=== PATIENT | female | born 1995 | race Caucasian/White ===

== ENCOUNTER 2019-07-11 12:07 | Emergency (ER) | payer OTHER ==
--- NOTE | 2019-07-11 12:29 | UC ---
Throat Pain/Nasal Abran HPI - HPI Summary HPI Summary: 23 yo female presents with sinus congestion. She tells me that she has a chronic runny nose, but over the last 2 days has had sinus congestion and her whole head feels "stuffy". She has tried goldenrod tea and netti pot with no relief. Denies fever, chills, earache, sore throat, cough, rash, n/v. - History of Current Complaint Stated Complaint: SINUS CONGESTION Time Seen by Provider: 07/11/19 12:29 Hx Obtained From: Patient Onset/Duration: Sudden Onset Severity: Mild Pain Intensity: 2 Pain Scale Used: 0-10 Numeric - Allergies/Home Medications Allergies/Adverse Reactions: Allergies Allergy/AdvReac Type Severity Reaction Status Date / Time amoxicillin Allergy Unknown Verified 07/11/19 12:36 Reaction Details environmental Allergy Congestion Uncoded 07/11/19 12:44 Home Medications: Home Medications Chlorphenir/Phenyleph/Aspirin [Farzaneh-[place] Plus Cold 2-7.8-325 mg] 1 tab PO ONCE 07/11/19 [History Confirmed 07/11/19] PMH/Surg Hx/FS Hx/Imm Hx - Additional Past Medical History Additional PMH: None - Surgical History Surgical History: None - Family History Known Family History: Positive: Non-Contributory - Social History Lives: With Family Alcohol Use: None Substance Use Type: Marijuana Smoking Status (MU): Never Smoked Tobacco Review of Systems All Other Systems Reviewed And Are Negative: No Constitutional: Positive: Negative Skin: Positive: Negative Eyes: Positive: Negative ENT: Positive: Nasal Discharge, Sinus Congestion Respiratory: Positive: Negative Cardiovascular: Positive: Negative Gastrointestinal: Positive: Negative Neurological: Positive: Negative Psychological: Positive: Negative Physical Exam - Summary Physical Exam Summary: GENERAL: NAD. WDWN. No pain distress. SKIN: No rashes, sores, lesions, or open wounds. HEENT: Head: AT/NC Eyes: EOM intact. Conjunctiva clear without inflammation or discharge. Ears: Hearing grossly normal. TMs intact, no bulging, erythema, or edema. Nose: Nasal mucosa pink and moist. No discharge. NTTP maxillary and frontal sinus. Throat: Posterior oropharynx without exudates, erythema, or tonsillar enlargement. Uvula midline. NECK: Supple. Nontender. No lymphadenopathy. CHEST: CTAB. No accessory muscle use. Breathing comfortably and in no distress. CV: RRR. Pulses intact. Cap refill <2seconds NEURO: Alert. PSYCH: Age appropriate behavior. Triage Information Reviewed: Yes Vital Signs: Vital Signs: Temp Pulse Resp BP Pulse Ox 99.3 F 59 14 98/63 100 07/11/19 12:37 07/11/19 12:37 07/11/19 12:37 07/11/19 12:37 07/11/19 12:37 Vital Signs Reviewed: Yes Throat Pain/Nasal Course/Dx - Course Course Of Treatment: Suspect viral sinusitis. Will rx for supportive care and have pt f/u with PCP if symptoms do not improve - Differential Dx/Diagnosis Provider Diagnosis: Viral sinusitis Discharge ED - Sign-Out/Discharge Documenting (check all that apply): Patient Departure All imaging exams completed and their final reports reviewed: No Studies - Discharge Plan Condition: Stable Disposition: HOME Prescriptions: Fluticasone NASAL SPRAY 50MCG* [Flonase NASAL SPRAY 50MCG*] 2 spray BOTH NARES DAILY #1 btl guaiFENesin ER TAB [Mucinex*] 600 mg PO BID #20 tab.er Loratadine [Claritin] 10 mg PO DAILY #14 tablet Patient Education Materials: Rhinosinusitis (ED) Forms: *Work Release Referrals: No Primary Care Phys,NOPCP [Primary Care Provider] - Additional Instructions: If you develop a fever, shortness of breath, chest pain, new or worsening symptoms - please call your PCP or go to the ED immediately. Your symptoms are likely from a viral infection. Viral infections do not respond to antibiotics and are limited to the treatment of symptoms. Viral infections typically run their course in 7-10 days. Drink plenty of fluids, especially if you are running any fever. Use salt water gargles several times a day. Take over the counter acetaminophen (Tylenol) or ibuprofen (Advil, Motrin) according to directions as needed for pain or fever. You may also use Chloraseptic spray or Cepacol lonzenges according to directions which contain a numbing medication and can provide some temporary relief from a sore throat. Return here or follow up with your primary care provider in 7 days if symptoms persist. - Billing Disposition and Condition Condition: STABLE Disposition: Home
[2019-07-11 12:43] VITALS: BP 98/63
== END 2019-07-11 12:57 | disposition home or self-care (01) ==
LOC: UCEAST 12:07
DX: J32.8 Other chronic sinusitis (principal); B97.89 Other viral agents as the cause of diseases classified elsewhere; Z88.0 Allergy status to penicillin; Z91.09 Other allergy status, other than to drugs and biological substances
CPT/HCPCS: 99202; G0463

== ENCOUNTER 2019-09-26 08:21 | Emergency (ER) | payer OTHER ==
[2019-09-26 08:44] VITALS: BP 106/77
--- NOTE | 2019-09-26 09:53 | UC ---
Skin Complaint HPI - HPI Summary HPI Summary: 23 yo female presents with skin complaint. She tells me that for the past week she has noticed a red bump to her right buttocks. States she has been "pinching " it with no change. No hx of MRSA. Has never had anything like this before. No pain or fevers or drainage. - History of Current Complaint Chief Complaint: U[place] Time Seen by Provider: 09/26/19 09:53 Stated Complaint: PERSONAL Hx Obtained From: Patient Hx Last Menstrual Period: irreg. Onset/Duration: Gradual Onset Onset Severity: Mild Current Severity: Mild Pain Intensity: 2 - Allergy/Home Medications Allergies/Adverse Reactions: Allergies Allergy/AdvReac Type Severity Reaction Status Date / Time amoxicillin Allergy Unknown Verified 09/26/19 08:32 Reaction Details Penicillins Allergy Unknown Verified 09/26/19 08:32 Reaction Details environmental Allergy Congestion Uncoded 09/26/19 08:32 PMH/Surg Hx/FS Hx/Imm Hx - Additional Past Medical History Additional PMH: None - Surgical History Surgical History: None Surgery Procedure, Year, and Place: tonsillectomy. R foot bone spur - Family History Known Family History: Positive: Non-Contributory - Social History Lives: With Family Alcohol Use: None Substance Use Type: None Smoking Status (MU): Never Smoked Tobacco Review of Systems All Other Systems Reviewed And Are Negative: No Constitutional: Positive: Negative Skin: Positive: Other - red bump buttocks Respiratory: Positive: Negative Cardiovascular: Positive: Negative Neurological: Positive: Negative Psychological: Positive: Negative Physical Exam - Summary Physical Exam Summary: GENERAL: NAD. WDWN. No pain distress. SKIN: RIGHT BUTTOCKS: 3mm mildly erythematous pustule. NTTP. No induration, streaking, or edema. NECK: Supple. Nontender. No lymphadenopathy. CHEST: No accessory muscle use. Breathing comfortably and in no distress. CV: Pulses intact. Cap refill <2seconds NEURO: Alert. PSYCH: Age appropriate behavior. Triage Information Reviewed: Yes Vital Signs: Initial Vital Signs Temp 99.2 F 09/26/19 08:33 Pulse 77 09/26/19 08:33 Resp 18 09/26/19 08:33 BP 106/77 09/26/19 08:33 Pulse Ox 100 09/26/19 08:33 Vital Signs Reviewed: Yes Course/Dx - Course Course Of Treatment: Appears to be very small abscess vs inflamed cyst vs pimple. Advised warm compress and will rx for bactroban cream - Diagnoses Provider Diagnosis: Pustule Discharge ED - Sign-Out/Discharge Documenting (check all that apply): Patient Departure All imaging exams completed and their final reports reviewed: No Studies - Discharge Plan Condition: Stable Disposition: HOME Prescriptions: Mupirocin 2% OINT* [Bactroban 2 % Oint*] 1 applic TOPICAL BID #1 tube Patient Education Materials: Abscess (ED) Referrals: No Primary Care Phys,NOPCP [Primary Care Provider] - Additional Instructions: If you develop a fever, shortness of breath, chest pain, new or worsening symptoms - please call your PCP or go to the ED immediately. - Billing Disposition and Condition Condition: STABLE Disposition: Home
== END 2019-09-26 10:03 | disposition home or self-care (01) ==
LOC: UCEAST 08:21
DX: L08.9 Local infection of the skin and subcutaneous tissue, unspecified (principal); Z88.0 Allergy status to penicillin; Z91.09 Other allergy status, other than to drugs and biological substances
CPT/HCPCS: 99212; G0463